=== PATIENT | male | born 1970 | race Two or more races ===

== ENCOUNTER 2020-09-30 20:39 | Emergency (ER) | payer OTHER ==
[~2020-09-30] VITALS: Ht 165.1 cm; Wt 89.4 kg
[2020-09-30 20:40] VITALS: BP 139/98
== END 2020-09-30 22:43 | disposition home or self-care (01) ==
LOC: ER 20:48
DX: S69.81XA Other specified injuries of right wrist, hand and finger(s), initial encounter (principal); W23.0XXA Caught, crushed, jammed, or pinched between moving objects, initial encounter; Y93.89 Activity, other specified; Y92.89 Other specified places as the place of occurrence of the external cause; Y99.8 Other external cause status
CPT/HCPCS: 73200